=== PATIENT | male | born 1995 | race Caucasian/White ===

== ENCOUNTER 2021-04-30 02:15 | Inpatient (IN) ==
[2021-04-30 02:51] LABS: Basophils # 0.1 K/mcL (0.0-0.2); Basophils % 0.6 %; Eosinophils % 0.1 %; Hemoglobin 14.8 g/dL (12.9-16.9); Immature Granulocytes % 0.3 % (0-4); Lymphocytes # 1.2 K/mcL (0.6-4.6); Lymphocytes % 11.9 %; Mean Corpuscular HGB Conc 33.6 g/dL (31.6-35.5); Mean Corpuscular Volume 89.1 fL (83.0-100.0); Mean Platelet Volume 9.2 fL (9.4-12.4); Monocytes # 0.6 K/mcL (0.0-1.3); Monocytes % 5.6 %; Neutrophils # 8.5 K/mcL (1.6-8.9); Platelet Count 305 K/mcL (140-400); Red Blood Count 4.94 M/mcL (4.19-5.50); Red Cell Distribution Width 13.6 % (11.5-14.5); Segmented Neutrophils % 81.5 %; White Blood Count 10.5 K/mcL (4.3-11.1)
[2021-04-30 03:07] LABS: Acetaminophen < 10 mcg/mL (10-20); BUN/Creatinine Ratio 12 (6-26); Blood Urea Nitrogen 10 mg/dL (6-20); Calcium 10.1 mg/dL (8.6-10.3); Carbon Dioxide 26 mEq/L (23-29); Chloride 103 mEq/L (98-107); Glucose 123 mg/dL (70-105); Osmolality,Calculated 286 (280-300); Potassium 3.6 mEq/L (3.5-5.1); Salicylate < 2.5 mg/dL (15.0-30.0); Sodium 138 mEq/L (136-145); eGFR For African Americans > 60 (> 60); eGFR For Non-African Americans > 60 (> 60)
[2021-04-30 03:13] LABS: Amorphous Sediment,Urine Few per hpf (None-Few); Bilirubin,Urine Negative (Negative); Blood,Urine Negative (Negative); Clarity,Urine Ex.Turbid (Clear); Color,Urine Yellow (Yellow); Glucose,Urine (UA) Normal (Normal); Ketones,Urine Trace mg/dL (Negative); Leukocyte Esterase,Urine Negative (Negative); Mucus,Urine Many per lpf (None-Few); Nitrite,Urine Negative (Negative); PH,Urine 7.5 pH Units (5.0-8.0); Protein,Urine 30 mg/dL (Neg-Trace); Specific Gravity,Urine 1.025 (1.010-1.025)
[2021-04-30 03:22] LABS: Amphetamine Screen,Urine Positive ng/mL (Cutoff=1000); Barbiturate Screen,Urine Negative ng/mL (Cutoff=200); Benzodiazepines Screen,Urine Negative ng/mL (Cutoff=200); Cannabinoid Screen,Urine Negative ng/mL (Cutoff = 50); Cocaine Screen,Urine Negative ng/mL (Cutoff= 300); Opiate Screen,Urine Negative ng/mL (Cutoff=300); Phencyclidine Screen,Urine Negative ng/mL (Cutoff=25)
[2021-04-30 03:23] LABS: Ethanol < 10 mg/dL (Less than 10)
[2021-04-30 06:33] LABS: Influenza A PCR Negative (Negative); Influenza B PCR Negative (Negative); Resp. Syncytial Virus PCR Negative (Negative)
[2021-04-30 06:37] LABS: SARS-CoV-2 by PCR (In House) Negative (Negative)
[2021-04-30] MEDS: Nicotine 21 MG PATCH.TD24 TD SCH (06:43)
[2021-04-30] MEDS ORDERED: Ziprasidone 20 MG/VIAL VIAL IM ONE (06:53)
[2021-04-30] MEDS ORDERED: *HR* LORazepam 1 MG TABLET PO PRN (07:04)
[2021-04-30] MEDS ORDERED: QUEtiapine Fumarate 25 MG TABLET PO PRN (07:04)
[2021-04-30] MEDS ORDERED: haloperidoL 5 MG TABLET PO PRN (07:04)
[2021-04-30] MEDS ORDERED: Ibuprofen 400 MG TABLET PO PRN (07:04)
[2021-04-30] MEDS ORDERED: hydrOXYzine pamoate 25 MG CAPSULE PO PRN (07:04)
[2021-04-30] MEDS ORDERED: Haloperidol Lactate 5 MG/ML VIAL IM PRN (07:04)
[2021-04-30] MEDS ORDERED: *HR* LORazepam 2 MG/ML VIAL IM PRN (07:04)
[2021-04-30] MEDS ORDERED: Acetaminophen 325 MG TABLET PO PRN (07:04)
[2021-04-30] MEDS ORDERED: Mag Hydrox/Al Hydrox/Simeth 30 ML UDC PO PRN (10:21)
[2021-04-30] MEDS ORDERED: MOM Conc 10 ML UD.LIQ PO PRN (10:21)
[2021-04-30] MEDS ORDERED: ARIPiprazole 5 MG TABLET PO SCH (21:00)
[2021-05-01 00:28] VITALS: O2SAT 98
[2021-05-01] MEDS: Nicotine 21 MG PATCH.TD24 TD SCH (07:52)
[2021-05-01 09:14] VITALS: BP 125/76; PULSE 77; TEMP 98.8
== END 2021-05-01 11:10 | disposition home or self-care (01) | DRG 750 ==
LOC: EMEROOARM 02:15 → 1ANU 07:17
PROVIDERS: ADMIT Psychiatry & Neurology Psychiatry; ATTEND Psychiatry & Neurology Psychiatry